=== PATIENT | female | born 1990 | race African-American/Black ===

== ENCOUNTER 2020-07-31 11:44 | Observation (INO) | payer MEDICAID ==
[~2020-07-31] VITALS: Ht 165.1 cm; Wt 109.8 kg
[2020-07-31] MEDS ORDERED: LACTATED RINGERS 1,000 ML IV SCH (13:00)
[2020-07-31] MEDS ORDERED: ONDANSETRON HCL 4MG/2ML INJ IV SCH (13:00)
[2020-07-31 14:06] LABS: BASOPHILS % 0.2 % (0.0-2.0); EOSINOPHILS % 0.1 % (0.0-5.0); HEMATOCRIT. 33.9 % (36.0-48.0); HEMOGLOBIN. 11.3 g/dL (12.0-16.0); LYMPHOCYTES % 15.5 % (20.0-50.0); MEAN CORPUSCULAR HEMOGLOBIN 29.6 pg (28.0-32.0); MEAN CORPUSCULAR VOLUME 88.9 fL (81.0-99.0); MEAN PLATELET VOLUME 7.5 fl (7.4-10.4); MONOCYTES % 4.8 % (2.0-8.0); NEUTROPHILS % 79.4 % (40.0-76.0); PLATELET 295 x1000/uL (130-400); RED BLOOD CELL COUNT 3.81 mill/uL (4.2-5.4); RED CELL DISTRIBUTION WIDTH 14.1 % (11.6-14.6)
[2020-07-31 14:13] LABS: CHLORIDE 108 mEq/L (98-107)
[2020-07-31] MEDS ORDERED: PREN1TAB78 MT (15:07)
== END 2020-07-31 15:15 | disposition home or self-care (01) ==
LOC: 8 EST LDRP 11:44
PROVIDERS: ADMIT Obstetrics & Gynecology; ATTEND Obstetrics & Gynecology
DX: O21.2 Late vomiting of pregnancy (principal); O26.893 Other specified pregnancy related conditions, third trimester; R19.7 Diarrhea, unspecified; Z3A.34 34 weeks gestation of pregnancy
CPT/HCPCS: 36415; 59025; 80053; 85025; 96361; 96374; G0378; J2405; 96360; 96372; 99281; J7120

== ENCOUNTER 2020-08-09 15:22 | Observation (INO) | payer MEDICAID ==
[~2020-08-09] VITALS: Ht 165.1 cm; Wt 108.9 kg
[~2020-08-09 15:22] MED LIST: PREN1TAB78 MT
== END 2020-08-09 19:40 | disposition home or self-care (01) ==
LOC: 8 EST LDRP 15:22 → 8 EST A/PP 15:45
PROVIDERS: ADMIT Obstetrics & Gynecology; ATTEND Obstetrics & Gynecology
DX: O42.913 Preterm premature rupture of membranes, unspecified as to length of time between rupture and onset of labor, third trimester (principal); Z3A.35 35 weeks gestation of pregnancy
CPT/HCPCS: 76815; 76818; 99281; G0378

== ENCOUNTER 2020-09-01 05:00 | Observation (INO) | payer MEDICAID, OTHER ==
[~2020-09-01] VITALS: Ht 165.1 cm; Wt 115.7 kg
[2020-09-01] MEDS ORDERED: DEXT 5%/LACTATED RINGERS 1,000 ML IV SCH (08:45)
[2020-09-01] MEDS ORDERED: PEN G BENZ/PEN G PROCAINE CR 1.2 MMU/2 ML IM SCH (09:00)
[2020-09-06] MEDS ORDERED: IBUP-2030 PO (06:19)
== END 2020-09-01 10:40 | disposition home or self-care (01) ==
LOC: 8 EST LDRP 05:00
PROVIDERS: ADMIT Obstetrics & Gynecology; ATTEND Obstetrics & Gynecology
DX: O62.9 Abnormality of forces of labor, unspecified (principal); Z20.828 Contact with and (suspected) exposure to other viral communicable diseases; Z3A.39 39 weeks gestation of pregnancy
CPT/HCPCS: 59025; 96372; G0378; J0558; U0003; 99281